=== PATIENT | male | born 1965 | race African-American/Black ===

== ENCOUNTER 2024-01-09 19:38 | Inpatient (IN) | payer OTHER ==
[2024-01-09 21:43] VITALS: BMI 25.1
[2024-01-09] MEDS ORDERED: BENZOCAINE/MENTHOL (CHLORASEPTIC ) LOZENGE MM PRN (23:21)
[2024-01-09] MEDS ORDERED: MAGNESIUM HYDROX 2400MG/30ML ORAL SUSPENSION 30 ML CUP PO PRN (23:21)
[2024-01-09] MEDS ORDERED: NALOXONE HCL (KLOXXADO) 8 MG SPRAY NS PRN (23:21)
[2024-01-09] MEDS ORDERED: NALOXONE HCL 0.4 MG/ML VIAL IM PRN (23:21)
[2024-01-09] MEDS ORDERED: ONDANSETRON *ODT* 4 MG TABLET SL PRN (23:21)
[2024-01-09] MEDS ORDERED: LOPERAMIDE HCL 2 MG CAPSULE PO PRN (23:21)
[2024-01-09] MEDS ORDERED: BENZONATATE 200 MG CAPSULE PO PRN (23:21)
[2024-01-09] MEDS ORDERED: DOCUSATE SODIUM 100 MG CAPSULE (FP) PO PRN (23:21)
[2024-01-09] MEDS ORDERED: MAG HYDROX/AL HYDROX/SIMETH 30 ML UNIT-DOSE CUP PO PRN (23:21)
[2024-01-09] MEDS ORDERED: guaiFENesin 600 MG TABLET.ER (FP) PO PRN (23:21)
[2024-01-09] MEDS ORDERED: POLYETHYLENE GLYCOL (HEALTHYLAX) 3350 17 GM PACKET PO PRN (23:21)
[2024-01-09] MEDS ORDERED: DICYCLOMINE HCL 10 MG CAPSULE PO PRN (23:21)
[2024-01-10] MEDS: diazePAM 5 MG TABLET PO SCH (01:06)
[2024-01-10] MEDS: diazePAM 5 MG TABLET PO PRN (01:19)
[2024-01-10] MEDS: ACETAMINOPHEN 325 MG TABLET (FP) PO PRN (01:20)
[2024-01-10] MEDS: METHOCARBAMOL 500 MG TABLET PO PRN (01:20)
[2024-01-10 08:22] LABS: CHLORIDE 99 mmol/L (98-107); POTASSIUM 3.8 mmol/L (3.5-5.1); SODIUM 132 mmol/L (136-145)
[2024-01-10 08:28] LABS: HEMATOCRIT 36.4 % (35.4-49); HEMOGLOBIN 11.6 GM/dL (11.7-16.9); MCH 30.3 pg (25.7-33.7); MCHC 31.8 g/dl (32.0-35.9); MEAN CELL VOLUME 95.1 fl (80-96); MEAN PLT VOLUME 8.4 fl (7.5-11.1); PLATELET COUNT 191 10^3/uL (134-434); RBC 3.83 M/mm3 (4.00-5.60); RDW 15.4 % (11.9-15.9); WHITE BLOOD COUNT 4.5 K/mm3 (4.0-10.0)
[2024-01-10 08:30] LABS: ALBUMIN 3.6 g/dl (3.4-5.0); ANION GAP 3 mmol/L (4-13); BLOOD UREA NITROGEN 24.6 mg/dL (7-18); CALCIUM 8.7 mg/dL (8.5-10.1); CO2 29 mmol/L (21-32); GLUCOSE,RANDOM 210 mg/dL (74-106)
[2024-01-10 08:33] LABS: CREATININE 1.7 mg/dL (0.55-1.3); SGOT/AST 49 U/L (15-37); SGPT/ALT 60 U/L (13-61)
[2024-01-10 08:35] LABS: BILIRUBIN,TOTAL 0.6 mg/dL (0.2-1); TOT PROT 6.6 g/dl (6.4-8.2)
[2024-01-10 08:36] LABS: ALK PHOS 119 U/L (45-117)
[2024-01-10] MEDS ORDERED: methaDONE HCL 10 MG TABLET PO SCH (09:15)
[2024-01-10] MEDS: PRENATAL VITAMINS W/ FOLIC ACID TABLET (FP) PO SCH (10:13)
[2024-01-10] MEDS ORDERED: PATIENT'S OWN MEDICATION (NON-FORMULARY) (Butalbital/Acetaminophen [Butalbital-Acetaminoph PO PRN (12:04)
[2024-01-10] MEDS: SACUBITRIL/VALSARTAN 24 MG-26 MG TABLET PO SCH (13:06)
[2024-01-10] MEDS: hydrOXYzine PAMOATE 25 MG CAPSULE (FP) PO PRN (17:04)
[2024-01-10] MEDS: THIAMINE 100 MG TABLET PO SCH (22:28)
[2024-01-10] MEDS: QUEtiapine FUMARATE 100 MG TABLET (FP) PO SCH (22:28)
[2024-01-10] MEDS: MELATONIN 5 MG TABLETS PO SCH (22:28)
[2024-01-11] MEDS: diazePAM 5 MG TABLET PO SCH (05:52)
[2024-01-12] MEDS: diazePAM 5 MG TABLET PO SCH (05:54)
[2024-01-12 06:46] VITALS: TEMP 97.6
[2024-01-12 09:10] VITALS: BP 122/88; PULSE 83; RESP 20
[2024-01-13] MEDS ORDERED: diazePAM 5 MG TABLET PO ONE (06:00)
== END 2024-01-12 11:27 | disposition home or self-care (01) | DRG 773 ==
LOC: YASAS 19:38 → Y3N 23:42
PROVIDERS: ADMIT Allergy & Immunology; ATTEND Surgery
PROC: HZ2ZZZZ Detoxification Services for Substance Abuse Treatment (ICD-10-PCS; principal; 2024-01-09)
DX: F10.230 Alcohol dependence with withdrawal, uncomplicated (principal); F11.20 Opioid dependence, uncomplicated; F17.210 Nicotine dependence, cigarettes, uncomplicated; F22 Delusional disorders; G40.909 Epilepsy, unspecified, not intractable, without status epilepticus; I11.0 Hypertensive heart disease with heart failure; I50.9 Heart failure, unspecified; Z28.310 Unvaccinated for COVID-19; Z28.9 Immunization not carried out for unspecified reason; Z87.820 Personal history of traumatic brain injury; Z86.59 Personal history of other mental and behavioral disorders; Z88.8 Allergy status to other drugs, medicaments and biological substances
CPT/HCPCS: 36415; 80053; 80305; 80307; 82962; 85027; 86780; 93005; 93010

== ENCOUNTER 2024-01-25 11:30 | Inpatient (IN) | payer OTHER ==
[2024-01-25 12:08] VITALS: BMI 24.0
[2024-01-25] MEDS ORDERED: IBUPROFEN 600 MG TABLET (FP) PO PRN (12:19)
[2024-01-25] MEDS ORDERED: ONDANSETRON *ODT* 4 MG TABLET SL PRN (12:19)
[2024-01-25] MEDS ORDERED: DICYCLOMINE HCL 10 MG CAPSULE PO PRN (12:19)
[2024-01-25] MEDS ORDERED: IBUPROFEN 400 MG TABLET (FP) PO PRN (12:19)
[2024-01-25] MEDS ORDERED: NALOXONE HCL (KLOXXADO) 8 MG SPRAY NS PRN (12:19)
[2024-01-25] MEDS ORDERED: ACETAMINOPHEN 325 MG TABLET (FP) PO PRN (12:19)
[2024-01-25] MEDS ORDERED: NICOTINE POLACRILEX 2 MG LOZENGE BC PRN (12:19)
[2024-01-25] MEDS ORDERED: BENZONATATE 200 MG CAPSULE PO PRN (12:19)
[2024-01-25] MEDS ORDERED: NALOXONE HCL 0.4 MG/ML VIAL IM PRN (12:19)
[2024-01-25] MEDS ORDERED: BISMUTH SUBSALICYLATE 524 MG/30 ML PO PRN (12:19)
[2024-01-25] MEDS ORDERED: MAGNESIUM HYDROX 2400MG/30ML ORAL SUSPENSION 30 ML CUP PO PRN (12:19)
[2024-01-25] MEDS ORDERED: BENZOCAINE/MENTHOL (CHLORASEPTIC ) LOZENGE MM PRN (12:19)
[2024-01-25] MEDS ORDERED: MAG HYDROX/AL HYDROX/SIMETH 30 ML UNIT-DOSE CUP PO PRN (12:19)
[2024-01-25] MEDS ORDERED: guaiFENesin 600 MG TABLET.ER (FP) PO PRN (12:19)
[2024-01-25] MEDS ORDERED: POLYETHYLENE GLYCOL (HEALTHYLAX) 3350 17 GM PACKET PO PRN (12:19)
[2024-01-25] MEDS ORDERED: PATIENT'S OWN MEDICATION (NON-FORMULARY) (Butalbital/Acetaminophen [Butalbital-Acetaminoph PO PRN (12:22)
[2024-01-25] MEDS ORDERED: PRENATAL VITAMINS W/ FOLIC ACID TABLET (FP) PO ONE (13:58)
[2024-01-25] MEDS: PRENATAL VITAMINS W/ FOLIC ACID TABLET (FP) PO SCH (14:00)
[2024-01-25] MEDS: SACUBITRIL/VALSARTAN 24 MG-26 MG TABLET PO SCH (14:00)
[2024-01-25] MEDS ORDERED: LORazepam 1 MG TABLET ONE (14:02)
[2024-01-25] MEDS: LORazepam 1 MG TABLET PO PRN (14:03)
[2024-01-25] MEDS: ACETAMINOPHEN 500 MG TABLET (FP) PO SCH (14:23)
[2024-01-25] MEDS: SUMAtriptan SUCCINATE 25 MG TABLET PO PRN (15:16)
[2024-01-25] MEDS: LIDOCAINE HCL 5% TOP OINTMENT 50 GM TUBE TP SCH (15:29)
[2024-01-25] MEDS: HYDROCORTISONE 0.5% TOPICAL CREAM 30 GM TUBE TP SCH (15:29)
[2024-01-25] MEDS: ACAMPROSATE CALCIUM 333 MG TABLET.DR PO SCH (15:29)
[2024-01-25] MEDS: LORazepam 2 MG TABLET PO SCH (17:30)
[2024-01-25] MEDS ORDERED: QUEtiapine FUMARATE 100 MG TABLET (FP) PO SCH (22:00)
[2024-01-25] MEDS ORDERED: [UNRECOGNIZED DRUG - OTHER] TP SCH (22:00)
[2024-01-25] MEDS ORDERED: LIDOCAINE TP SCH (22:00)
[2024-01-25] MEDS ORDERED: HYDROCORTISONE TP SCH (22:00)
[2024-01-25] MEDS: THIAMINE 100 MG TABLET PO SCH (22:23)
[2024-01-25] MEDS: QUEtiapine FUMARATE 100 MG TABLET (FP) PO SCH (22:23)
[2024-01-25] MEDS: MELATONIN 5 MG TABLETS PO SCH (22:23)
[2024-01-26] MEDS ORDERED: methaDONE HCL 10 MG TABLET PO SCH (07:15)
[2024-01-26] MEDS: hydrOXYzine PAMOATE 25 MG CAPSULE (FP) PO PRN (09:03)
[2024-01-26] MEDS: METHOCARBAMOL 500 MG TABLET PO PRN (09:03)
[2024-01-26] MEDS: METOPROLOL TARTRATE 50 MG TABLET (FP) PO SCH (09:04)
[2024-01-26] MEDS: LOPERAMIDE HCL 2 MG CAPSULE PO PRN (09:04)
[2024-01-26] MEDS: LIDOCAINE 4% PATCH TP ONE (14:38)
[2024-01-26 14:44] LABS: CHLORIDE 106 mmol/L (98-107); HEMATOCRIT 36.1 % (35.4-49); HEMOGLOBIN 11.6 GM/dL (11.7-16.9); MCH 30.7 pg (25.7-33.7); MEAN CELL VOLUME 95.8 fl (80-96); MEAN PLT VOLUME 8.6 fl (7.5-11.1); PLATELET COUNT 220 10^3/uL (134-434); POTASSIUM 4.1 mmol/L (3.5-5.1); RBC 3.77 M/mm3 (4.00-5.60); RDW 14.8 % (11.9-15.9); SODIUM 138 mmol/L (136-145); WHITE BLOOD COUNT 5.1 K/mm3 (4.0-10.0)
[2024-01-26 14:51] LABS: ALBUMIN 3.5 g/dl (3.4-5.0); ANION GAP 4 mmol/L (4-13); CALCIUM 8.8 mg/dL (8.5-10.1); CO2 27 mmol/L (21-32); GLUCOSE,RANDOM 147 mg/dL (74-106)
[2024-01-26 14:54] LABS: CREATININE 1.2 mg/dL (0.55-1.3); SGOT/AST 137 U/L (15-37); SGPT/ALT 115 U/L (13-61)
[2024-01-26 14:55] LABS: BILIRUBIN,TOTAL 0.5 mg/dL (0.2-1); TOT PROT 6.6 g/dl (6.4-8.2)
[2024-01-26 14:57] LABS: ALK PHOS 100 U/L (45-117)
[2024-01-26] MEDS: LIDOCAINE PATCH REMOVAL MC SCH (21:44)
[2024-01-27] MEDS: LORazepam 1 MG TABLET PO SCH (05:27)
[2024-01-27] MEDS: diphenhydrAMINE HCL 50 MG CAPSULE PO PRN ×2 (09:28→15:43)
[2024-01-27] MEDS: QUEtiapine FUMARATE 50 MG TABLET PO SCH (11:17)
[2024-01-27] MEDS: LIDOCAINE 5% TOPICAL PATCH TP SCH (15:59)
[2024-01-27] MEDS: LACTULOSE 20 GM/30 ML UDC (FOR ORAL USE ONLY) PO SCH (18:02)
[2024-01-27] MEDS: LIDOCAINE PATCH REMOVAL MC SCH (22:07)
[2024-01-28] MEDS: LORazepam 0.5 MG TABLET PO SCH (05:23)
[2024-01-28] MEDS: LORazepam 0.5 MG TABLET PO PRN (13:34)
[2024-01-29] MEDS: LORazepam 0.5 MG TABLET PO ONE (05:30)
[2024-01-29 09:28] VITALS: BP 137/84; PULSE 73; RESP 18; TEMP 96.8
== END 2024-01-29 09:35 | disposition home or self-care (01) | DRG 773 ==
LOC: YASAS 11:30 → Y6N 12:42
PROVIDERS: ADMIT Allergy & Immunology; ATTEND Surgery
PROC: HZ2ZZZZ Detoxification Services for Substance Abuse Treatment (ICD-10-PCS; principal; 2024-01-25)
DX: F10.230 Alcohol dependence with withdrawal, uncomplicated (principal); F11.20 Opioid dependence, uncomplicated; F17.210 Nicotine dependence, cigarettes, uncomplicated; F41.9 Anxiety disorder, unspecified; E72.20 Disorder of urea cycle metabolism, unspecified; I11.0 Hypertensive heart disease with heart failure; I50.9 Heart failure, unspecified; M17.11 Unilateral primary osteoarthritis, right knee; R74.01 Elevation of levels of liver transaminase levels; Z87.820 Personal history of traumatic brain injury; Z88.8 Allergy status to other drugs, medicaments and biological substances
CPT/HCPCS: 36415; 80053; 80305; 80307; 82140; 83036; 84450; 85027; 86780; 86803; 87811; 93005; 93010